=== PATIENT | male | born 1995 | race Caucasian/White ===

== ENCOUNTER 2019-06-14 19:30 | Emergency (ER) | payer OTHER, BC ==
[~2019-06-14] VITALS: Ht 172.7 cm; Wt 68.0 kg
[~2019-06-14 19:30] MED LIST: AUGMENTIN 875875 MG PO; HYDROCODONE BIT1 T11 PO; MOTRIN600 MG PO; MOTRIN800 MG PO
[2019-06-14] MEDS ORDERED: CYCLOBENZAPRINE5 M3 PO (21:38)
[2019-06-14] MEDS ORDERED: Motrin,Rufen800 MG PO (21:38)
== END 2019-06-14 21:44 | disposition home or self-care (01) ==
LOC: ED 19:30
DX: S39.012A Strain of muscle, fascia and tendon of lower back, initial encounter (principal); S49.91XA Unspecified injury of right shoulder and upper arm, initial encounter; F17.200 Nicotine dependence, unspecified, uncomplicated; V43.52XA Car driver injured in collision with other type car in traffic accident, initial encounter; Y93.I9 Activity, other involving external motion; Y92.488 Other paved roadways as the place of occurrence of the external cause; Y99.8 Other external cause status

== ENCOUNTER 2021-03-17 00:42 | Emergency (ER) | payer OTHER ==
[~2021-03-17 00:42] MED LIST changes: +CYCLOBENZAPRINE5 M3 PO; +Motrin,Rufen800 MG PO
[2021-03-17] MEDS ORDERED: NAPROSYN500 MG PO (19:54)
== END 2021-03-17 03:03 | disposition home or self-care (01) ==
LOC: ED 00:42
DX: S02.2XXA Fracture of nasal bones, initial encounter for closed fracture (principal); S00.81XA Abrasion of other part of head, initial encounter; V89.2XXA Person injured in unspecified motor-vehicle accident, traffic, initial encounter; Y93.89 Activity, other specified; Y92.89 Other specified places as the place of occurrence of the external cause; Y99.8 Other external cause status

== ENCOUNTER 2021-03-17 17:27 | Emergency (ER) | payer SELFPAY ==
[~2021-03-17] VITALS: Ht 175.2 cm
[2021-03-17] MEDS ORDERED: NAPROSYN500 MG PO (19:54)
== END 2021-03-17 20:12 | disposition home or self-care (01) ==
LOC: ED 17:27
DX: S05.02XA Injury of conjunctiva and corneal abrasion without foreign body, left eye, initial encounter (principal); V89.2XXA Person injured in unspecified motor-vehicle accident, traffic, initial encounter; Y93.89 Activity, other specified; Y92.89 Other specified places as the place of occurrence of the external cause; Y99.8 Other external cause status

== ENCOUNTER → 2021-07-28 | Outpatient (CLI) | payer OTHER ==
[~2021-07-28] MED LIST changes: +NAPROSYN500 MG PO
== END | disposition home or self-care (01) ==
LOC: COVID19 15:45
PROVIDERS: ATTEND Family Medicine
DX: Z11.52 Encounter for screening for COVID-19 (principal)

== ENCOUNTER 2025-05-13 17:07 | Emergency (ER) | payer SELFPAY ==
[~2025-05-13] VITALS: Ht 175.2 cm; Wt 70.3 kg
[2025-05-13] MEDS ORDERED: Ondansetron Hydrochloride 4 MG/2 ML VIAL IV ONE (18:35)
[2025-05-13] MEDS ORDERED: SODIUM CHLORIDE 0.9% 1,000 ML IV ONE (18:35)
[2025-05-13 18:54] LABS: BASO # 0.0 10*3/uL (0.0-0.1); BASO % 0.4 % (0.0-1.0); EOS # 0.0 10*3/uL (0.0-0.4); EOS % 0.3 % (1.0-4.0); MEAN CELL VOLUME 86.9 fl (80.0-94.0); MEAN CORPUSCULAR HGB 30.2 pg (27.0-31.0); MEAN PLATELET VOLUME 9.0 fl (9.6-12.3); MONO # 0.6 10*3/uL (0.1-1.0); MONO % 5.8 % (3.0-9.0); NEUT # 7.7 10*3/uL (2.3-7.9); NEUT % 76.6 % (47.0-73.0); NUCLEATED RED BLOOD CELL 0.0 % (0.0-0.0); NUCLEATED RED BLOOD CELL 0.0 10*3/uL (0.0-0.0); PLATELET COUNT AUTOMATED 217 10*3/uL (130-400); RED CELL DISTRI WIDTH 12.3 % (0-14.5)
[2025-05-13 19:12] LABS: BUN 9 mg/dl (9-23); ETHYL ALCOHOL < 3.0 mg/dl (<3)
[2025-05-13] MEDS ORDERED: Ondansetron4 MG PO (21:29)
== END 2025-05-13 21:42 | disposition home or self-care (01) ==
LOC: ED 17:07
PROVIDERS: Nurse Practitioner Family
DX: F11.13 Opioid abuse with withdrawal (principal); R10.9 Unspecified abdominal pain; R68.83 Chills (without fever)